=== PATIENT | female | born 1975 | race Asian ===

== ENCOUNTER → 2020-10-31 | Outpatient (CLI) | payer OTHER | LOC: RAD 13:38 | PROVIDERS: ATTEND Internal Medicine | DX: S69.91XA Unspecified injury of right wrist, hand and finger(s), initial encounter (principal); M79.644 Pain in right finger(s); X58.XXXA Exposure to other specified factors, initial encounter; Y92.89 Other specified places as the place of occurrence of the external cause; Y93.89 Activity, other specified; Y99.8 Other external cause status ==